=== PATIENT | female | born 1970 | race African-American/Black ===

== ENCOUNTER 2016-11-13 12:44 | Emergency (ER) | payer SELFPAY ==
--- NOTE | 2016-11-13 13:13 | ER Document Report ---
ED Medical Screen (RME) - General Stated Complaint: TOOTH PAIN Notes: 46 yo left upper dental pain x 2 days. + swelling to left face TRAVEL OUTSIDE OF THE [place] IN LAST 30 DAYS: No - Related Data Allergies/Adverse Reactions: Shellfish * [Shellfish] Allergy (Verified 09/16/15 12:50) Past Medical History Pulmonary Medical History: Reports: Hx Asthma - as a child Skin Medical History: Reports Hx Cellulitis - Immunizations Immunizations up to date: Yes Hx Diphtheria, Pertussis, Tetanus Vaccination: Yes Physical Exam - Vital signs Vitals: Temp Pulse Resp BP Pulse Ox 98.1 F 83 18 137/74 H 100 11/13/16 13:08 11/13/16 13:08 11/13/16 13:08 11/13/16 13:08 11/13/16 13:08 Course - Vital Signs Vital signs: Temp Pulse Resp BP Pulse Ox 98.1 F 83 18 137/74 H 100 11/13/16 13:08 11/13/16 13:08 11/13/16 13:08 11/13/16 13:08 11/13/16 13:08
--- NOTE | 2016-11-13 14:09 | ER Document Report ---
ED General - General Chief Complaint: Toothache Stated Complaint: TOOTH PAIN Time seen by provider: 14:05 Notes: This is a 46-year-old female that presents today with a 2 day history of tooth pain. She states that 2 days ago sudden onset. She going any food makes it worse. Denies nausea vomiting fever chills TRAVEL OUTSIDE OF THE [place] IN LAST 30 DAYS: No - Related Data Allergies/Adverse Reactions: Shellfish * [Shellfish] Allergy (Verified 11/13/16 14:09) Past Medical History - General Information source: Patient - Social History Smoking Status: Current Some Day Smoker Chew tobacco use (# tins/day): No Frequency of alcohol use: Occasional Drug Abuse: None Family History: Arthritis, CAD, CVA, DM, Hyperlipidemia, Hypertension, Malignancy Patient has suicidal ideation: No Patient has homicidal ideation: No Pulmonary Medical History: Reports: Hx Asthma - as a child Renal/ Medical History: Denies: Hx Peritoneal Dialysis Skin Medical History: Reports Hx Cellulitis - Immunizations Immunizations up to date: Yes Hx Diphtheria, Pertussis, Tetanus Vaccination: Yes Review of Systems - Review of Systems Constitutional: denies: Chills, Fever EENT: See HPI Cardiovascular: No symptoms reported Respiratory: No symptoms reported Gastrointestinal: No symptoms reported. denies: Abdominal pain Genitourinary: No symptoms reported Female Genitourinary: No symptoms reported Musculoskeletal: No symptoms reported Skin: No symptoms reported Hematologic/Lymphatic: No symptoms reported Neurological/Psychological: No symptoms reported Physical Exam - Vital signs Vitals: Temp Pulse Resp BP Pulse Ox 98.1 F 83 18 137/74 H 100 11/13/16 13:08 11/13/16 13:08 11/13/16 13:08 11/13/16 13:08 11/13/16 13:08 - General General appearance: Appears well, Alert In distress: None - HEENT Head: Normocephalic, Atraumatic Eyes: Normal Mucous membranes: Moist Teeth diagram: 1 - Loose tooth. Dental fractures or caries noted. No pharyngeal abscesses noted. No Ludwigs noted. Patient can talk in full sentences. Pharynx: Normal. No: Erythema, Exudate, Peritonsillar abscess, Retropharyngeal abscess Neck: Normal. No: Lymphadenopathy - Respiratory Respiratory status: No respiratory distress Breath sounds: Normal. No: Rales, Rhonchi, Stridor, Wheezing - Cardiovascular Rhythm: Regular Heart sounds: Normal auscultation - Abdominal Tenderness: Nontender - Extremities General upper extremity: Normal inspection General lower extremity: Normal inspection - Neurological Cognition: Normal. No: Confused - Psychological Associated symptoms: Normal affect, Normal mood - Skin Skin Temperature: Warm Skin Moisture: Dry Skin Color: Normal Course - Re-evaluation Re-evalutation: 11/13/16 14:36 Patient could talk in full sentences.no pharyngeal abscesses were noted no tonsillar exudate or erythema noted no slim. Patient was advised to follow-up with a dentist within a week. She was given multiple opportunities to ask questions. I advised that the best treatment for her toothache was antibiotic given and to follow-up with a dentist. She insisted on getting pain medication. I treated her pain acutely here in the emergency department with Percocet, however, I did not give her a prescription for pain. At this point she got extremely upset. - Vital Signs Vital signs: Temp Pulse Resp BP Pulse Ox 98.1 F 83 18 136/74 H 100 11/13/16 14:13 11/13/16 14:13 11/13/16 14:13 11/13/16 14:13 11/13/16 14:13 Discharge - Discharge Clinical Impression: Toothache Condition: Stable Disposition: HOME, SELF-CARE Instructions: Penicillin V K ([facility]), Toothache ([facility]) Additional Instructions: Return to the emergency department if symptoms worsen. Follow-up with primary care physician and dentist within a week. Toothache Your pain is due to dental decay. The tooth must be repaired in order for you to feel better. You will, therefore, be referred to a dentist. Severe swelling or drainage around a tooth usually means a deep dental abscess. This also requires evaluation and treatment by the dentist, but antibiotics may be prescribed while awaiting dental treatment. You should be rechecked immediately if you develop major swelling of the face, increasing pain, a lump in the jaw or gums, headache, or fever. Prescriptions: Penicillin V Potassium [Penicillin Vk 500 mg Tablet] 500 mg PO BID #20 tablet Referrals: [facility] [Provider Group] - Follow up as needed
[2016-11-13 14:16] VITALS: BP 136/74
[2016-11-13] MEDS ORDERED: OXYCODONE-ACETAMINOPHEN 5-325 MG TABLET PO ONE (14:19)
== END 2016-11-13 14:47 | disposition home or self-care (01) ==
LOC: ER 12:44
DX: K08.89 Other specified disorders of teeth and supporting structures (principal); Z91.013 Allergy to seafood; F17.200 Nicotine dependence, unspecified, uncomplicated
CPT/HCPCS: 99282